=== PATIENT | female | born 1980 | race American Indian/Alaskan Native ===

== ENCOUNTER 2018-08-11 02:35 | Emergency (ER) | payer OTHER ==
[2018-08-11 02:41] VITALS: BP 135/93
--- NOTE | 2018-08-11 03:37 | Emergency Department Report ---
ED Back Pain/Injury HPI - General Chief Complaint: Back Pain/Injury Stated Complaint: FLANK/BACK PAIN Time Seen by Provider: 08/11/18 02:53 Source: patient Limitations: No Limitations - History of Present Illness Initial Comments: Pt presents to the ED with c/o left middle back pain and left rib pain that began 2 weeks ago. She states that she believes she slept wrong on that side. She denies any fall, injury, trauma, heavy lifting, numbness, weakness, tingling. She is ambulatory without any difficulty. Pt states the pain is worse with certain movements. She denies any urinary sx, abd pain, fever, N/V/D. She is having normal BMs. She states she has been taking ibuprofen and tylenol without much relief. - Related Data Previous Rx's Medication Instructions Recorded Last Taken Type Cyclobenzaprine [Flexeril] 10 mg PO QHS PRN #7 tablet 08/11/18 Unknown Rx Naproxen 375 mg PO BID #20 tablet. 08/11/18 Unknown Rx Allergies Allergy/AdvReac Type Severity Reaction Status Date / Time No Known Allergies Allergy Unverified 08/11/18 02:37 ED Review of Systems ROS: Stated complaint: FLANK/BACK PAIN Other details as noted in HPI Comment: All other systems reviewed and negative ED Past Medical Hx - Past Medical History Previous Medical History?: Yes Hx Hypertension: Yes - Surgical History Past Surgical History?: Yes Additional Surgical History: c section x 3 - Social History Smoking Status: Never Smoker Substance Use Type: Marijuana - Medications Home Medications: Home Medications Medication Instructions Recorded Confirmed Last Taken Type Cyclobenzaprine [Flexeril] 10 mg PO QHS PRN #7 tablet 08/11/18 Unknown Rx Naproxen 375 mg PO BID #20 tablet. 08/11/18 Unknown Rx ED Physical Exam - General Limitations: No Limitations General appearance: alert, in no apparent distress - Head Head exam: Present: atraumatic, normocephalic - Eye Eye exam: Present: normal appearance - ENT ENT exam: Present: mucous membranes moist - Neck Neck exam: Present: normal inspection, full ROM, other (no midline C-spine tendereness, no c-spine paraspinal tenderness ). Absent: tenderness, meningismus - Respiratory Respiratory exam: Present: normal lung sounds bilaterally, other (no TTP over the ribs bilaterally). Absent: respiratory distress, wheezes, rales, rhonchi, stridor, chest wall tenderness, accessory muscle use, decreased breath sounds, prolonged expiratory - Cardiovascular Cardiovascular Exam: Present: regular rate, normal rhythm, normal heart sounds. Absent: systolic murmur, rubs, gallop - GI/Abdominal GI/Abdominal exam: Present: soft, normal bowel sounds. Absent: distended, tenderness, guarding, rebound, rigid - Back Exam Back exam: Present: normal inspection, full ROM, paraspinal tenderness (mild left sided thoracic paraspinal TTP), other (no C-spine, T-spine, or L-spine midline tenderness, no step offs, no deformitites ). Absent: muscle spasm, vertebral tenderness - Neurological Exam Neurological exam: Present: alert, oriented X3, normal gait. Absent: motor sensory deficit - Psychiatric Psychiatric exam: Present: normal affect, normal mood - Skin Skin exam: Present: warm, dry, intact ED Course Vital Signs 08/11/18 02:39 Temperature 97.9 F Pulse Rate 64 Respiratory 18 Rate Blood Pressure 135/93 O2 Sat by Pulse 98 Oximetry - Reevaluation(s) Reevaluation #1: 08/11/18 04:08 pt is sleeping comfortably in the chair. had to wake pt up to discuss her normal XR of the t-spine, ribs, and CXR. ED Medical Decision Making - Radiology Data Radiology results: report reviewed PROCEDURE: XR SPINE THORACIC 2V TECHNIQUE: Thoracic spine radiographs including AP, lateral, and Swimmer's views. HISTORY: middle back pain COMPARISONS: None . FINDINGS: Alignment: Normal . Vertebral body height: Normal . Disk spaces: Normal . Fracture(s): None . Bone mineralization: Normal . IMPRESSION: Normal Examination . This document is electronically signed by Alonzo López MD., August 11 2018 04:00:47 AM ET PROCEDURE: XR RIBS UNI W PA CHEST 3+V LT TECHNIQUE: Unilateral rib radiographs, 2 views of the left ribs. HISTORY: left sided rib pain COMPARISONS: None . FINDINGS: Lung: Normal . Pleural space: Normal . Pneumothorax: None . Bony thorax/ribs: No acute or displaced rib fractures. . IMPRESSION: No acute or displaced rib fractures. . This document is electronically signed by Alonzo López MD., August 11 2018 04:02:43 AM ET - Medical Decision Making Pt presents to the ED with c/o left middle back pain and left rib pain that began 2 weeks ago. She states that she believes she slept wrong on that side. She denies any fall, injury, trauma, heavy lifting, numbness, weakness, tingling. She is ambulatory without any difficulty. Pt states the pain is worse with certain movements. She denies any urinary sx, abd pain, fever, N/V/D. She is having normal BMs. VSS. Exam is benign with very mild thoracic paraspinal muscular TTP. She has no midline tenderness of the C-spine, T-spine, or L-spine, no step offs, no deformities, no neuro deficits. bilateral ribs with no TTP. breath sounds are clear bilaterally. Pt symptoms consistent with a muscle strain. Will have pt follow up with her PCP in the next 2-3 days. Referred pt to Dr. Zimmerman, orthopedic if she continued to have back pain. Gave pt anti- inflammatory and short course of muscle relaxer. Advised pt to only take the muscle relaxer at night as needed and do not drive or operate heavy machinery. Advised pt to return to the ED for any new or worsening symptoms. Critical care attestation.: If time is entered above; I have spent that time in minutes in the direct care of this critically ill patient, excluding procedure time. ED Disposition Clinical Impression: Muscle strain Disposition: DC- TO HOME OR SELFCARE Is pt being admited?: No Does the pt Need Aspirin: No Condition: Stable Instructions: Muscle Strain (ED) Additional Instructions: Follow up with a primary care doctor in the next 2-3 days. If continue to have back pain follow up with Dr. Zimmerman orthopedic in the next 2-3 days. Only use muscle relaxer at night do not drive or operate heavy machinery while taking muscle relaxer. Return to the emergency room for any new or worsening symptoms. Prescriptions: Cyclobenzaprine [Flexeril] 10 mg PO QHS PRN #7 tablet PRN Reason: Muscle Spasm Naproxen 375 mg PO BID #20 tablet. Ref[facility]: [facility] [Primary Care Provider] - 2-3 Days VENUS ZIMMERMAN MD [Staff Physician] - 2-3 Days Time of Disposition: 04:10 Print Language: LAO
--- NOTE | 2018-08-11 04:03 | XRay Report ---
PROCEDURE: XR SPINE THORACIC 2V TECHNIQUE: Thoracic spine radiographs including AP, lateral, and Swimmer's views. HISTORY: middle back pain COMPARISONS: None . FINDINGS: Alignment: Normal . Vertebral body height: Normal . Disk spaces: Normal . Fracture(s): None . Bone mineralization: Normal . IMPRESSION: Normal Examination . This document is electronically signed by Alonzo López MD., August 11 2018 04:00:47 AM ET
--- NOTE | 2018-08-11 04:05 | XRay Report ---
PROCEDURE: XR RIBS UNI W PA CHEST 3+V LT TECHNIQUE: Unilateral rib radiographs, 2 views of the left ribs. HISTORY: left sided rib pain COMPARISONS: None . FINDINGS: Lung: Normal . Pleural space: Normal . Pneumothorax: None . Bony thorax/ribs: No acute or displaced rib fractures. . IMPRESSION: No acute or displaced rib fractures. . This document is electronically signed by Alonzo López MD., August 11 2018 04:02:43 AM ET
[2018-08-11] MEDS ORDERED: IBUPROFEN PO ONE (04:32)
[2018-08-11] MEDS ORDERED: FLEXERIL ONE (04:32)
[2018-08-11] MEDS ORDERED: FLEXERIL PO ONE (04:32)
[2018-08-11] MEDS ORDERED: IBUPROFEN ONE (04:33)
== END 2018-08-11 04:33 | disposition home or self-care (01) ==
LOC: ED 02:35
DX: S29.012A Strain of muscle and tendon of back wall of thorax, initial encounter (principal); I10 Essential (primary) hypertension; F12.10 Cannabis abuse, uncomplicated; X58.XXXA Exposure to other specified factors, initial encounter; Y93.89 Activity, other specified; Y92.89 Other specified places as the place of occurrence of the external cause; Y99.8 Other external cause status
CPT/HCPCS: 72070